=== PATIENT | female | born 1935 | race Caucasian/White ===

== ENCOUNTER 2016-10-24 09:48 | Emergency (ER) | payer OTHER ==
[~2016-10-24] VITALS: Ht 167.6 cm; Wt 89.6 kg
[~2016-10-24 09:48] MED LIST: ALPRAZOLAM0.5 MG PO; AMARYL1 MG PO; AMLODIPINE BES2.5 MG PO; ARTIFICIAL TEAR1510 BOTH EYES; ASPIR 8181 M1 PO; ASPIRIN E.C.81 M1 PO; ASPIRIN81 M2 PO; AVAPRO300 MG PO; Ambien PO; CALCIUM 600 +1 EA12 PO; CALCIUM 600 MG1 EACH PO; CALCIUM PO; CHILD ASPIRIN81 M1 PO; CITALOPRAM HBR20 MG PO; CLARITIN10 M4 PO; Cozaar PO; ECOTRIN81 M1 PO; Feosol PO; GLIMEPIRIDE1 MG PO; GLIMEPIRIDE2 MG PO; HYDROCHLOROTHIA25 MG PO; Hydrodiuril,Oretic,E PO; INDOCIN50 MG PO; IRBESARTAN150 MG PO; IRBESARTAN300 MG PO; IRON325 M1 PO; IRON55 MG PO; LOPRESSOR100 M1 PO; LORAZEPAM0.5 MG PO; LOSARTAN POTAS100 MG PO; LOW DOSE ASPIRI81 M1 PO; Lopressor PO; METOPROLOL SUC100 MG PO; METOPROLOL TART50 MG PO; MICARDIS HCT1 TABLET PO; MULTI-VITAMIN1 EAC4 PO; NEXIUM40 MG PO; PANTOPRAZOLE SO40 MG PO; PLAVIX75 MG PO; PRAVACHOL40 MG PO; PRAVACHOL80 MG PO; PROTONIX40 MG PO; Pradaxa PO; ROXICET 5-3251 EACH PO; SOTALOL120 MG PO; TOPROL XL50 MG PO; VIT PO; VITAMIN D31000 UNI2 PO; Zocor PO
[2016-10-24] MEDS ORDERED: IRON325 MG PO (10:07)
[2016-10-24 10:36] LABS: ADD MIUA? NO; BILIRUBIN NEGATIVE; BLOOD NEGATIVE; COLOR YELLOW ((YELLOW)); GLUCOSE (STRIP) 100; KETONES NEGATIVE; LEUKOCYTES NEGATIVE; NITRITE NEGATIVE; PH, URINE 5.5 (5-8); PROTEIN (STRIP) NEGATIVE; SPECIFIC GRAVITY 1.021 (1.000-1.030); UCUL ADDED? NO; UROBILINOGEN 0.2 MG/DL (0.2-1.0)
[2016-10-24 10:59] LABS: HEMATOCRIT 25.1 % (36.0-46.0); MCH 27.4 PG (29.0-34.0); MCHC 31.5 G/DL (30.0-36.0); MCV 87.2 FL (83-99); MEAN PLAT.VOLUME 9.7 uM^3 (9.5-12.4); PLATELET COUNT 186 K/uL (156-360); RBC DIS.WIDTH-CV 15.8 % (11.8-14.6); RBC DIS.WIDTH-SD 49.3 % (39-53); WHITE BLOOD COUNT 5.8 K/uL (4.1-10.2)
[2016-10-24 11:02] LABS: RED BLOOD COUNT 2.88 M/uL (3.80-5.20)
[2016-10-24 11:11] LABS: CHLORIDE 107 mEq/L (99-109); POTASSIUM 4.6 mEq/L (3.7-5.4); SODIUM 140 mEq/L (136-147)
[2016-10-24 11:12] LABS: GLUCOSE 286 mg/dL (70-99)
[2016-10-24 11:14] LABS: ANION GAP 6 MEQ/L (2-14)
[2016-10-24 11:16] LABS: GFR ESTIMATE (CALCULATED) 27 mL/min/
[2016-10-24 11:17] LABS: UREA NITROGEN (BUN) 58 mg/dL (9-23)
[2016-10-24 13:20] VITALS: BP 152/69
[2016-10-24 13:43] VITALS: BP 149/47
[2016-10-24 14:38] VITALS: BP 169/55
[2016-10-24 15:42] VITALS: BP 149/59
[2016-10-24 16:56] VITALS: BP 134/59
== END 2016-10-24 17:06 | disposition home or self-care (01) ==
LOC: EME 09:48
PROVIDERS: Emergency Medicine
DX: D59.4 Other nonautoimmune hemolytic anemias (principal); E11.9 Type 2 diabetes mellitus without complications; E78.5 Hyperlipidemia, unspecified; I10 Essential (primary) hypertension; Z91.040 Latex allergy status
CPT/HCPCS: 80048; 81003; 85027; 86850; 86900; 86901; 86905; 86920; 99281; 99285; P9016

== ENCOUNTER 2016-12-17 22:10 | Emergency (ER) | payer OTHER ==
[~2016-12-17] VITALS: Ht 177.8 cm; Wt 89.6 kg
[~2016-12-17 22:10] MED LIST changes: +IRON325 MG PO
[2016-12-18 01:59] VITALS: BP 158/71
== END 2016-12-18 02:00 | disposition home or self-care (01) ==
LOC: EME 22:10
PROC: 2W3QX1Z Immobilization of Right Lower Leg using Splint (ICD-10-PCS; principal; 2016-12-18)
DX: M84.463A Pathological fracture, right fibula, initial encounter for fracture (principal); F32.9 Major depressive disorder, single episode, unspecified; E11.9 Type 2 diabetes mellitus without complications; I10 Essential (primary) hypertension; M79.89 Other specified soft tissue disorders; E78.5 Hyperlipidemia, unspecified; Z87.891 Personal history of nicotine dependence
CPT/HCPCS: 73564; 73610; 93971; 99281; 99284; J1885

== ENCOUNTER 2017-05-19 20:09 | Observation (INO) | payer OTHER ==
[~2017-05-19] VITALS: Ht 170.2 cm; Wt 89.7 kg
[2017-05-19 20:58] LABS: HEMATOCRIT 29.7 % (36.0-46.0); MCH 24.9 PG (29.0-34.0); MCHC 30.6 G/DL (30.0-36.0); MCV 81.1 FL (83-99); MEAN PLAT.VOLUME 10.2 uM^3 (9.5-12.4); PLATELET COUNT 190 K/uL (156-360); RBC DIS.WIDTH-CV 14.1 % (11.8-14.6); RBC DIS.WIDTH-SD 41.9 % (39-53); RED BLOOD COUNT 3.66 M/uL (3.80-5.20); WHITE BLOOD COUNT 6.1 K/uL (4.1-10.2)
[2017-05-19 21:03] LABS: POINT-OF-CARE METER ID UU14100415
[2017-05-19 21:06] LABS: CHLORIDE 105 mEq/L (99-109); POTASSIUM 4.1 mEq/L (3.7-5.4); SODIUM 140 mEq/L (136-147)
[2017-05-19 21:08] LABS: GLUCOSE 249 mg/dL (70-99)
[2017-05-19 21:09] LABS: ANION GAP 8 MEQ/L (2-14)
[2017-05-19 21:10] LABS: TOTAL BILIRUBIN 0.3 mg/dL (0.0-1.0)
[2017-05-19 21:12] LABS: ALKALINE PHOSPHATASE 98 IU/L (3-129); GFR ESTIMATE (CALCULATED) 31 mL/min/
[2017-05-19 21:13] LABS: UREA NITROGEN (BUN) 29 mg/dL (9-23)
[2017-05-19 21:15] LABS: CREATINE KINASE 37 IU/L (1-294); TOTAL CK 37 IU/L (1-294)
[2017-05-19 21:21] LABS: TROP-I INTERPRETATION NEGATIVE; TROPONIN-I < 0.01 ng/mL (0.0-0.30)
[2017-05-19 21:22] LABS: CK-MB 0.7 ng/mL (0.0-4.9)
[2017-05-19] MEDS ORDERED: GLIMEPIRIDE1 MG PO (23:17)
[2017-05-20 00:48] VITALS: BP 142/82
[2017-05-20 03:51] VITALS: BP 139/62
[2017-05-20 04:00] VITALS: BP 140/80
[2017-05-20 05:35] LABS: HEMATOCRIT 27.1 % (36.0-46.0); MCH 24.5 PG (29.0-34.0); MCHC 30.3 G/DL (30.0-36.0); MCV 80.9 FL (83-99); MEAN PLAT.VOLUME 10.5 uM^3 (9.5-12.4); PLATELET COUNT 165 K/uL (156-360); RBC DIS.WIDTH-SD 41.6 % (39-53); RED BLOOD COUNT 3.35 M/uL (3.80-5.20); WHITE BLOOD COUNT 5.6 K/uL (4.1-10.2)
[2017-05-20 05:52] LABS: IRON 26 MCG/DL (35-150)
[2017-05-20 08:05] LABS: Estimated Average Glucose 171 mg/dL (70-123); HEMOGLOBIN A1c (GLYCOHEMOGLOB) 7.6 % HGB (Below 5.7)
[2017-05-20 08:10] VITALS: BP 177/85
[2017-05-20 08:14] LABS: FERRITIN 31 NG/ML (10-291)
[2017-05-20 08:42] LABS: POINT-OF-CARE METER ID UU13113831
[2017-05-20 12:10] VITALS: BP 150/69
[2017-05-20 12:29] LABS: POINT-OF-CARE METER ID UU13113700
[2017-05-20] MEDS ORDERED: ASPIR-LOW81 MG PO (14:39)
[2017-05-20] MEDS ORDERED: FERROUS SULFAT324 M1 PO (14:40)
== END 2017-05-20 16:49 | disposition home or self-care (01) ==
LOC: EME → EDBD 20:09 → EDOF 22:29 → 5WEST 22:29 → EDOF 22:29 → ENRESERV 22:35 → 5WEST 05-20 00:32
PROVIDERS: Emergency Medicine; Internal Medicine
DX: D64.9 Anemia, unspecified (principal); I12.9 Hypertensive chronic kidney disease with stage 1 through stage 4 chronic kidney disease, or unspecified chronic kidney disease; N18.3 Chronic kidney disease, stage 3 (moderate); E11.22 Type 2 diabetes mellitus with diabetic chronic kidney disease; I65.23 Occlusion and stenosis of bilateral carotid arteries; I48.91 Unspecified atrial fibrillation; E04.2 Nontoxic multinodular goiter; Z87.11 Personal history of peptic ulcer disease; Z91.040 Latex allergy status; R47.81 Slurred speech; E78.5 Hyperlipidemia, unspecified; Z82.49 Family history of ischemic heart disease and other diseases of the circulatory system; Z79.84 Long term (current) use of oral hypoglycemic drugs; Z79.82 Long term (current) use of aspirin
CPT/HCPCS: 70450; 70551; 71010; 80053; 82272; 82550; 82553; 82728; 82948; 83036; 83540; 84466; 84484; 85027; 85730; 93005; 93880; 99281; 99285; G0378; G8978 GP CJ; G8979 GP CH; G8987 GO CI; G8988 GO CH; J1644; J1815; J2765

== ENCOUNTER 2018-03-19 12:19 | Inpatient (IN) | payer OTHER ==
[~2018-03-19] VITALS: Ht 167.6 cm; Wt 85.2 kg
[~2018-03-19 12:19] MED LIST changes: +ASPIR-LOW81 MG PO; +FERROUS SULFAT324 M1 PO
[2018-03-19 13:21] LABS: APPEARANCE CLOUDY ((CLEAR)); BILIRUBIN NEGATIVE; BLOOD NEGATIVE; COLOR YELLOW ((YELLOW)); GLUCOSE (STRIP) NEGATIVE; KETONES NEGATIVE; LEUKOCYTES NEGATIVE; NITRITE NEGATIVE; PROTEIN (STRIP) 30; SPECIFIC GRAVITY 1.018 (1.000-1.030)
[2018-03-19 13:22] LABS: HEMATOCRIT 33.2 % (36.0-46.0); MCH 25.9 PG (29.0-34.0); MCHC 33.1 G/DL (30.0-36.0); MCV 78.1 FL (83-99); PLATELET COUNT 352 K/uL (156-360); RBC DIS.WIDTH-CV 14.6 % (11.8-14.6); RBC DIS.WIDTH-SD 41.8 % (39-53); RED BLOOD COUNT 4.25 M/uL (3.80-5.20); WHITE BLOOD COUNT 12.6 K/uL (4.1-10.2)
[2018-03-19 13:24] LABS: BACTERIA 1+ /HPF; EPITHELIAL CELLS 2+ /HPF; HYALINE CASTS 0-5 /LPF; MUCUS TRACE /LPF; RED BLOOD CELLS 0-5 /HPF (0-5); UCUL ADDED? YES
[2018-03-19 13:35] LABS: ALBUMIN 3.6 g/dL (3.2-4.8); CHLORIDE 90 mEq/L (99-109); POTASSIUM 3.3 mEq/L (3.7-5.4); SODIUM 133 mEq/L (136-147)
[2018-03-19 13:37] LABS: GLUCOSE 135 mg/dL (70-99); TOTAL PROTEIN 7.9 g/dL (6.4-8.3)
[2018-03-19 13:39] LABS: TOTAL BILIRUBIN 0.5 mg/dL (0.0-1.0)
[2018-03-19 13:41] LABS: ALKALINE PHOSPHATASE 115 IU/L (3-129); GFR ESTIMATE (CALCULATED) 25 mL/min/
[2018-03-19 13:42] LABS: UREA NITROGEN (BUN) 49 mg/dL (9-23)
[2018-03-19 13:43] LABS: AST (GOT) 11 IU/L (2-34)
[2018-03-19 13:44] LABS: ALT (GPT) 7 IU/L (3-49); LIPASE 53 U/L (1.0-51.0)
[2018-03-19 13:46] LABS: TROP-I INTERPRETATION NEGATIVE; TROPONIN-I 0.01 ng/mL (0.0-0.30)
[2018-03-19] MEDS ORDERED: JANUVIA100 MG PO (18:00)
[2018-03-19] MEDS ORDERED: VITAMIN D32000 UNI1 PO (18:01)
[2018-03-19 19:41] LABS: FOLIC ACID (FOLATE) > 22.0 NG/ML (5.0-22.0)
[2018-03-19 21:35] VITALS: BP 150/67
[2018-03-20 04:20] VITALS: BP 130/60
[2018-03-20 05:07] LABS: BASOPHIL (%) 0.2 % (0-1); EOSINOPHIL (%) 0 % (0-5); HEMATOCRIT 28.6 % (36.0-46.0); HEMOGLOBIN 9.1 G/DL (11.9-15.5); LYMPHOCYTE COUNT 0.4 K/uL (1.0-2.8); MCH 25.1 PG (29.0-34.0); MCHC 31.8 G/DL (30.0-36.0); MCV 78.8 FL (83-99); MONOCYTE (%) 5.4 % (3-12); MONOCYTE COUNT 0.5 K/uL (0-0.8); NEUTROPHIL (%) 88.4 % (45-76); NEUTROPHIL COUNT 7.8 K/uL (1.8-6.4); PLATELET COUNT 266 K/uL (156-360); RBC DIS.WIDTH-CV 14.3 % (11.8-14.6); RBC DIS.WIDTH-SD 41.2 % (39-53); RED BLOOD COUNT 3.63 M/uL (3.80-5.20); WHITE BLOOD COUNT 8.8 K/uL (4.1-10.2)
[2018-03-20 05:32] LABS: CHLORIDE 98 MEQ/L (99-109); CREATININE 1.8 MG/DL (0.6-1.3); GFR ESTIMATE (CALCULATED) 29 mL/min/; GLUCOSE 135 mg/dL (70-99); POTASSIUM 3.9 MEQ/L (3.7-5.4); SODIUM 132 MEQ/L (136-147); UREA NITROGEN (BUN) 51 mg/dL (9-23)
[2018-03-20 08:05] VITALS: BP 165/66
[2018-03-20 11:35] VITALS: BP 160/72
[2018-03-20 16:16] VITALS: BP 170/79
[2018-03-20 20:00] VITALS: BP 154/67
[2018-03-20 23:37] VITALS: BP 159/70
[2018-03-21 04:31] VITALS: BP 177/77
[2018-03-21 07:12] VITALS: BP 149/64
[2018-03-21 11:22] VITALS: BP 149/71
[2018-03-21 15:29] VITALS: BP 178/75
[2018-03-21 20:01] VITALS: BP 156/80
[2018-03-22 07:06] VITALS: BP 185/78
[2018-03-22 11:25] VITALS: BP 182/84
[2018-03-22 15:30] VITALS: BP 176/78
[2018-03-22 18:37] VITALS: BP 148/90
[2018-03-23 05:26] VITALS: BP 158/82
[2018-03-23 05:35] VITALS: BP 158/82
[2018-03-23 07:58] VITALS: BP 147/65
[2018-03-23 11:30] VITALS: BP 194/86
[2018-03-23] MEDS ORDERED: PRAVASTATIN SOD40 MG PO (14:08)
[2018-03-23] MEDS ORDERED: DONEPEZIL HCL5 MG PO (14:08)
[2018-03-23] MEDS ORDERED: GLIPIZIDE5 MG PO (14:09)
[2018-03-23] MEDS ORDERED: JANUVIA25 MG PO (14:11)
[2018-03-23] MEDS ORDERED: NORVASC10 MG PO (14:17)
== END 2018-03-23 16:04 | DRG 684 ==
LOC: EME 12:19 → EDOF 17:21 → 4SOUTH 17:21 → EDOF 17:21 → ENRESERV 17:25 → 4SOUTH 21:26
PROVIDERS: Internal Medicine; Physician Assistant
DX: N17.9 Acute kidney failure, unspecified (principal); E86.0 Dehydration; E87.6 Hypokalemia; G30.9 Alzheimer's disease, unspecified; E83.52 Hypercalcemia; I25.10 Atherosclerotic heart disease of native coronary artery without angina pectoris; I10 Essential (primary) hypertension; R41.82 Altered mental status, unspecified; I12.9 Hypertensive chronic kidney disease with stage 1 through stage 4 chronic kidney disease, or unspecified chronic kidney disease; F01.50 Vascular dementia, unspecified severity, without behavioral disturbance, psychotic disturbance, mood disturbance, and anxiety; N18.3 Chronic kidney disease, stage 3 (moderate); I48.0 Paroxysmal atrial fibrillation; E78.5 Hyperlipidemia, unspecified; F02.80 Dementia in other diseases classified elsewhere, unspecified severity, without behavioral disturbance, psychotic disturbance, mood disturbance, and anxiety; E11.22 Type 2 diabetes mellitus with diabetic chronic kidney disease; F32.9 Major depressive disorder, single episode, unspecified; Z87.19 Personal history of other diseases of the digestive system; Z87.11 Personal history of peptic ulcer disease; Z79.82 Long term (current) use of aspirin; Z95.1 Presence of aortocoronary bypass graft; Z95.5 Presence of coronary angioplasty implant and graft; Z87.442 Personal history of urinary calculi; Z87.891 Personal history of nicotine dependence; Z91.040 Latex allergy status; K59.00 Constipation, unspecified; Z90.710 Acquired absence of both cervix and uterus; Z86.000 Personal history of in-situ neoplasm of breast; I72.8 Aneurysm of other specified arteries; I70.8 Atherosclerosis of other arteries
CPT/HCPCS: 70551; 71045; 71046; 74176; 76705; 80048; 80053; 81003; 82607; 82746; 82948; 83690; 83880; 84443; 84484; 85025; 85027; 87086; 93005; 99281; 99285; G0378; G8978 GP CJ; G8979 GP CI; G8987 GO CJ; G8988 CI; J0360; J1644; J1815; J7030